=== PATIENT | male | born 1990 | race Caucasian/White ===

== ENCOUNTER 2025-03-28 16:45 | Emergency (ER) | payer BC, SELFPAY ==
--- OUTSIDE RECORDS SUMMARY | 2025-03-28 09:45 | XMS_ITS | Encounter Summary ---
Author Organization [facility] Address [address], [address] [place] [address] Care Team Providers Care Roofing Tile Sorter Name Role Phone Angelina Mitchell APRN - [place] Primary Care Provider Reason for Visit * Reason Comments Abdominal Pain Abdominal pain start ed this morning upper and lower abdomen 03/28, multiple black stools, nausea Encounter Details Date Type Department Care Team (Late st Contact Info) Description 03/28/2025 9:45 AM EDT - 03/28/2025 2:32 PM EDT Emergency [facility] Emergency Department [address] [place] [address] Pennie Ma MD [address] [place] [address] Acute gastritis, presence of bleeding unspecified, unspecified gastritis type (Primary Dx) Discharge Disposition: Home or Self Care Social History Tobacco Use Types Packs/Day Years Used Date Smoking Tobacco: Former Cigarettes Q uit: 06/2023 Smokeless Tobacco: Current Chew Tobacco Cessation:Ready to Q uit: Not Asked; Counseling Given: Not Answered Alcohol Use Standard Drinks/Week Comments Yes 0 (1 standard drink = 0.6 oz pur e alcohol) AUDIT-C Answer Date Recorded Q1: How often do you have a drink containing alc ohol? Monthly or less 01/28/2024 Q2: How many drinks containi ng alcohol do you have on a typical day when you are drinking? 3 or 4 01/28/2024 Q3: How often do you have si x or more drinks on one occasion? Never 01/28/2024 AUDIT-C Answer Date Recorded Q1: How often do you have a drink containing alc ohol? Monthly or less 03/28/2025 Q2: How many drinks containi ng alcohol do you have on a typical day when you are drinking? 3 or 4 03/28/2025 Q3: How often do you have si x or more drinks on one occasion? Never 03/28/2025 Interpersonal Safety Domain Source: IP Abuse Scr eening Answer Date Recorded Physical abuse Denies 03/28/2025 Verbal abuse Denies 03/28/2025 Emotional abuse Denies 03/28/2025 Financial abuse Denies 03/28/2025 Sexual abuse Denies 03/28/2025 Sex and Gender Information Value Date Recorded Sex Assigned at Not on file Legal Sex Male 5:10 PM EST Gender Identity Not on file Sexual Orientation Not on file documented as of this encounter Last Filed Vital Signs Vital Sign Reading Time Taken Comments Blood Pressure 131/65 03/28/2025 2:29 PM EDT Pulse 75 03/28/2025 9:47 AM EDT Temperature 36.7 C (98.1 F) 03/28/2025 9:47 AM EDT Respiratory Rate 20 03/28/2025 9:47 AM EDT Oxygen Saturation 96% 03/28/2025 2:29 PM EDT Inhaled Oxygen Concentration - - Weight 97.5 kg (215 lb) 03/28/2025 9:47 AM EDT Height 165.1 cm (5' 5 ) 03/28/2025 9:47 AM EDT Body Mass Index 35.78 03/28/2025 9:47 AM EDT documented in this encounter Functional Status documented as of this encounter Discharge Instructions * Discharge Instructions* Pennie Ma MD - 03/28/2025 2:04 PM EDT Dietary restrictions include avoiding spicy foods acidic foods which to include tomato paste saucessauces etc. No alcohol. Avoid carbonated and caffeinated beverages. Take Carafate 4 times a day on an empty stomach. Use Zofran every 8 hours as needed for nausea or vomiting. Make sure that you drink plenty of water. Follow-up with your primary care provider within 1 week for recheck. Please return immediately should you develop any worsening symptoms or any other acute concern documented in this encounter Medications at Time of Discharge ibuprofen (ADVIL;MOTRIN) 200 MG tablet Take 2 tablets by mouth every 6 hours as needed for Pain ondansetron (ZOFRAN-ODT) 4 MG disintegrating tablet Take 1 tablet by mouth 3 times daily as needed for Nausea or Vomiting 20 tablet 03/28/2025 sucralfate (CARAFATE) 1 GM/10ML suspension Take 4 times a day on an empty stomach-1 g when you wake up, will 1 g half an hour before lunch and a half an hour before dinner and 1 g at bedtime 1200 mL 3 03/28/2025 vitamin D (ERGOCALCIFEROL) 1.25 MG (75289 UT) CAPS capsule Take 1 capsule by mouth once a week 12/29/2023 albuterol sulfate HFA (PROAIR HFA) 108 (90 Base) MCG/ACT inhaler Inhale 2 puffs into the lungs every 6 hours as needed for Wheezing 18 g 06/20/2021 busPIRone (BUSPAR) 5 MG tablet Take 1 tablet by mouth 3 times daily 12/23/2023 dicyclomine (BENTYL) 10 MG capsule Take 1 capsule by mouth 4 times daily (before meals and nightly) for 10 days 40 capsule 12/19/2023 famotidine (PEPCID) 20 MG tablet Take 1 tablet by mouth 2 times daily 60 tablet 12/19/2023 ondansetron (ZOFRAN-ODT) 4 MG disintegrating tablet Take 1 tablet by mouth 3 times daily as needed for Nausea or Vomiting 21 tablet 12/19/2023 ibuprofen (ADVIL;MOTRIN) 800 MG tablet Take 1 tablet by mouth every 8 hours as needed for Pain 30 tablet 03/15/2020 ondansetron (ZOFRAN ODT) 4 MG disintegrating tablet Take 1 tablet by mouth every 8 hours as needed for Nausea 20 tablet 03/15/2020 acetaminophen (TYLENOL) 325 MG tablet Take 2 tablets by mouth every 6 hours as needed for Pain documented as of this encounter Plan of Treatment Not on file documented as of this encounter Procedures Procedure Name Priority Date/Time Associated Diagnosis Comments URINALYSIS WITH MICROSCOPIC STAT 03/28/2025 1:40 PM EDT XR ABDOMEN (KUB) (SINGLE AP VIEW) STAT 03/28/2025 12:31 PM EDT CBC WITH AUTO DIFFERENTIAL STAT 03/28/2025 10:15 AM EDT LIPASE STAT 03/28/2025 10:15 AM EDT LACTIC ACID STAT 03/28/2025 10:15 AM EDT COMPREHENSIVE METABOLIC PANEL STAT 03/28/2025 10:15 AM EDT documented in this encounter Results * (ABNORMAL) Urinalysis with Microscopic (03/28/2025 1:40 PM EDT) Color, UA Yellow Yellow 03/28/2025 1:40 PM EDT [facility] Turbidity UA Clear Clear 03/28/2025 1:40 PM EDT [facility] Glucose, Ur NEGATIVE NEGATIVE mg/dL 03/28/2025 1:40 PM EDT [facility] Bilirubin, Urine NEGATIVE NEGATIVE 03/28/2025 1:40 PM EDT [facility] Ketones, Urine NEGATIVE NEGATIVE mg/dL 03/28/2025 1:40 PM EDT [facility] Specific [place], UA 1.020 1.010 - 1.020 03/28/2025 1:40 PM EDT [facility] Urine Hgb NEGATIVE NEGATIVE 03/28/2025 1:40 PM EDT [facility] pH, Urine 6.0 5.0 - 9.0 03/28/2025 1:40 PM EDT [facility] Protein, UA NEGATIVE NEGATIVE mg/dL 03/28/2025 1:40 PM EDT [facility] Urobilinogen, Urine Normal 0.0 - 1.0 EU/dL 03/28/2025 1:40 PM EDT [facility] Nitrite, Urine NEGATIVE NEGATIVE 03/28/2025 1:40 PM EDT [facility] Leukocyte Esterase, Urine NEGATIVE NEGATIVE 03/28/2025 1:40 PM EDT [facility] WBC, UA 0 TO 2 0 - 5 /HPF 03/28/2025 1:40 PM EDT [facility] RBC, UA 0 TO 2 0 - 2 /HPF 03/28/2025 1:40 PM EDT [facility] Epithelial Cells, UA 0 TO 2 0 - 5 /HPF 03/28/2025 1:40 PM EDT [facility] Bacteria, UA 1+(A) None 03/28/2025 1:40 PM EDT [facility] Mucus, UA 3+(A) None 03/28/2025 1:40 PM EDT [facility] URINE SPECIMEN / Unknown 03/28/2025 1:40 PM EDT 03/28/2025 1:56 PM EDT us Pennie Ma MD URINE ORDERABLES Final Result [facility] [address] [phone] * XR ABDOMEN (KUB) (SINGLE AP VIEW) (03/28/2025 12:31 PM EDT) Anatomical Region Laterality Modality Abdomen Computed Radiogr aphy 03/28/2025 1:30 PM EDT Impressions 03/28/2025 1:30 PM EDT Nonspecific but nonobstructive bowel gas pattern. Narrative 03/28/2025 1:30 PM EDT EXAMINATION: ONE SUPINE XRAY VIEW(S) OF THE ABDOMEN 03/28/2025 12:06 pm COMPARISON: None. HISTORY: ORDERING SYSTEM PROVIDED HISTORY: epigastric pain TECHNOLOGIST PROVIDED HISTORY: epigastric pain FINDINGS: Nonspecific but nonobstructive bowel gas pattern. No definite evidence for intraperitoneal free air. No urinary tract calcifications are noted. No acute osseous abnormality. Procedure Note Og Botello MD - 03/28/2025 EXAMINATION: ONE SUPINE XRAY VIEW(S) OF THE ABDOMEN 03/28/2025 12:06 pm COMPARISON: None. HISTORY: ORDERING SYSTEM PROVIDED HISTORY: epigastric pain TECHNOLOGIST PROVIDED HISTORY: epigastric pain FINDINGS: Nonspecific but nonobstructive bowel gas pattern. No definite evidencefor intraperitoneal free air. No urinary tract calcifications are noted.No acute osseous abnormality. IMPRESSION: Nonspecific but nonobstructive bowel gas pattern. us Pennie Ma MD IMG DIAGNOSTIC IMAGING ORDERABLE S Final Result * (ABNORMAL) Lipase (03/28/2025 10:15 AM EDT) Lipase 64(H) 13 - 60 U/L 03/28/2025 10:15 AM EDT [facility] Blood BLOOD SPECIMEN / Unknown 03/28/2025 10:15 AM EDT 03/28/2025 10:25 AM EDT us Pennie Ma MD CHEMISTRY ORDERABLES Final Resul t Performing Organization Address [facility]/ZIP Co de Phone Number [facility] [address] [place] [address] * Lactic Acid (03/28/2025 10:15 AM EDT) Lactic Acid 1.1 0.5 - 2.2 mmol/L 03/28/2025 10:15 AM EDT [facility] 03/28/2025 10:1 5 AM EDT 03/28/2025 10:25 AM EDT Pennie Ma MD CHEMISTRY ORDERABLES Final Resul t Performing Organization Address City/[facility]/ZIP Co de Phone Number [facility] [address] [phone] * (ABNORMAL) Comprehensive Metabolic Panel (03/28/2025 10:15 AM ED) Sodium 139 136 - 145 mmol/L 03/28/2025 10:15 AM [facility] Potassium 4.2 3.7 - 5.3 mmol/L 03/28/2025 10:15 AM [facility] Chloride 103 98 - 107 mmol/L 03/28/2025 10:15 AM [facility] CO2 24 20 - 31 mmol/L 03/28/2025 10:15 AM [facility] Anion Gap 12 9 - 16 mmol/L 03/28/2025 10:15 AM [facility] Glucose 101(H) 74 - 99 mg/dL 03/28/2025 10:15 AM [facility] BUN 12 6 - 20 mg/dL 03/28/2025 10:15 AM [facility] Creatinine 0.7 0.70 - 1.20 mg/dL 03/28/2025 10:15 AM [facility] Est, Glom Filt Rate >90 >60 mL/min/1.7 3m2 03/28/2025 10:15 AM [facility] Comment: These results are not intended for use in patients <18 years of age. eGFR results are calculated without a race factor using the 2020 CKD-EPI equation. Careful clinical correlation is recommended, particularly when comparing to results calculated using previous equations. The CKD-EPI equation is less accurate in patients with extremes of muscle mass, extra-renal metabolism of creatine, excessive creatine ingestion, or following therapy that affects renal tubular secretion. BUN/Creatinine Ratio 17 9 - 20 03/28/2025 10:15 AM [facility] Calcium 8.9 8.6 - 10.4 mg/dL 03/28/2025 10:15 AM [facility] Total Protein 7.0 6.6 - 8.7 g/dL 03/28/2025 10:15 AM [facility] Albumin 4.6 3.5 - 5.2 g/dL 03/28/2025 10:15 AM [facility] Albumin/Globulin Ratio 1.9 1.0 - 2.5 03/28/2025 10:15 AM [facility] Total Bilirubin 0.5 0.00 - 1.20 mg/dL 03/28/2025 10:15 AM [facility] Alkaline Phosphatase 80 40 - 129 U/L 03/28/2025 10:15 AM [facility] ALT 23 10 - 50 U/L 03/28/2025 10:15 AM [facility] AST 18 10 - 50 U/L 03/28/2025 10:15 AM [facility] Blood BLOOD SPECIMEN / Unknown 03/28/2025 10:15 AM EDT 03/28/2025 10:25 AM EDT us Pennie Ma MD CHEMISTRY ORDERABLES Final Resul t [facility] [address] [phone] * (ABNORMAL) CBC with Auto Differential (03/28/2025 10:15 AM EDT) WBC 9.0 3.5 - 11.3 k/uL 03/28/2025 10:15 AM [facility] RBC 5.69 4.21 - 5.77 m/uL 03/28/2025 10:15 AM [facility] Hemoglobin 15.9 13.0 - 17.0 g/dL 03/28/2025 10:15 AM [facility] Hematocrit 46.9 40.7 - 50.3 % 03/28/2025 10:15 AM [facility] MCV 82.4(L) 82.6 - 102.9 fL 03/28/2025 10:15 AM [facility] MCH 27.9 25.2 - 33.5 pg 03/28/2025 10:15 AM [facility] MCHC 33.9 28.4 - 34.8 g/dL 03/28/2025 10:15 AM [facility] RDW 13.4 11.8 - 14.4 % 03/28/2025 10:15 AM [facility] Platelets 331 138 - 453 k/uL 03/28/2025 10:15 AM [facility] MPV 8.9 8.1 - 13.5 fL 03/28/2025 10:15 AM [facility] NRBC Automated 0.0 0.0 per 100 WBC 03/28/2025 10:15 AM [facility] Neutrophils % 72(H) 36 - 65 % 03/28/2025 10:15 AM [facility] Lymphocytes % 15(L) 24 - 43 % 03/28/2025 10:15 AM [facility] Monocytes % 6 3 - 12 % 03/28/2025 10:15 AM [facility] Eosinophils % 7(H) 1 - 4 % 03/28/2025 10:15 AM [facility] Basophils % 0 0 - 2 % 03/28/2025 10:15 AM [facility] Immature Granulocytes % 0 0 % 03/28/2025 10:15 AM [facility] Neutrophils Absolute 6.53 1.50 - 8.10 k/uL 03/28/2025 10:15 AM [facility] Lymphocytes Absolute 1.31 1.10 - 3.70 k/uL 03/28/2025 10:15 AM [facility] Monocytes Absolute 0.51 0.10 - 1.20 k/uL 03/28/2025 10:15 AM [facility] Eosinophils Absolute 0.59(H) 0.00 - 0.44 k/uL 03/28/2025 10:15 AM [facility] Basophils Absolute 0.03 0.00 - 0.20 k/uL 03/28/2025 10:15 AM EDT [facility] Immature Granulocytes Absolute 0.03 0.00 - 0.30 k/uL 03/28/2025 10:15 AM EDT [facility] BLOOD SPECIMEN / Unknown 03/28/2025 10:15 AM EDT 03/28/2025 10:25 AM EDT us Pennie Ma MD HEMATOLOGY ORDERABLES Final Resu lt [facility] [address] [phone] documented in this encounter Visit Diagnoses Diagnosis Acute gastritis, presence of bleeding unspecified, unspecified gastritis type- Primary documented in this encounter Administered Medications Inactive Administered Medications - up to 3 most recent administrations Medication Order MAR Action Action Date Dose Rate Site aluminum & magnesium hydroxide-simethicone (MAALOX PLUS) 30 mL, lidocaine viscous hcl (XYLOCAINE) 5 mL (GI COCKTAIL) Oral, ONCE, On Chasity 03/28/25 at 1245, For 1 dose, Take 5 mL from lidocaine viscous 2% cup and mix with 30 mL of maalox and then administer. Given 03/28/2025 12:39 PM EDT famotidine (PEPCID) 20 MG/2ML 20 mg in sodium chloride (PF) 0.9 % 10 mL injection 20 mg, IntraVENous, ONCE, 1 dose, On Chasity 03/28/25 at 1045, IV Push over minimum of 2 minutes - Dilute with 10 mL NS Given 03/28/2025 10:51 AM EDT 20 mg HYDROcodone-acetaminophen (NORCO) 5-325 MG per tablet 1 tablet 1 tablet, Oral, ONCE, 1 dose, On Chasity 03/28/25 at 1415, Maximum dose of acetaminophen is 4000 mg from all sources in 24 hours. Given 03/28/2025 2:27 PM EDT 1 tablet ondansetron (ZOFRAN) injection 4 mg 4 mg, IntraVENous, ONCE, 1 dose, On Chasity 03/28/25 at 1045 Given 03/28/2025 10:51 AM EDT 4 mg sodium chloride 0.9 % bolus 1,000 mL 1,000 mL (10.3 mL/kg), IntraVENous, at 983.6 mL/hr, Administer over 61 Minutes, ONCE, On Chasity 03/28/25 at 1045, For 1 dose New Bag 03/28/2025 10:51 AM EDT 1,000 mLs 983.6 mL/hr documented in this encounter Active and Recently Administered Medications Times are shown in EDT. Scheduled Medication Order 03/26/2025 03/27/2025 03/28/2025 aluminum & magnesium hydroxide-simethicone (MAALOX PLUS) 30 mL, lidocaine viscous hcl (XYLOCAINE) 5 mL (GI COCKTAIL) (COMPLETED) Oral, ONCE, On Chasity 03/28/25 at 1245, For 1 dose, Take 5 mL from lidocaine viscous 2% cup and mix with 30 mL of maalox and then administer. 1239 (Given - Provid er: Katey Garcia RN) famotidine (PEPCID) 20 MG/2ML 20 mg in sodium chloride (PF) 0.9 % 10 mL injection (COMPLETED) 20 mg, IntraVENous, ONCE, 1 dose, On Chasity 03/28/25 at 1045, IV Push over minimum of 2 minutes - Dilute with 10 mL NS 1051 (Given - Provid er: Sarwat Liang RN) HYDROcodone-acetaminophen (NORCO) 5-325 MG per tablet 1 tablet (COMPLETED) 1 tablet, Oral, ONCE, 1 dose, On Chasity 03/28/25 at 1415, Maximum dose of acetaminophen is 4000 mg from all sources in 24 hours. 1427 (Given - Provid er: Nancy Arzola RN - Comment: Per dr Ma, pt given norco to take at home) ondansetron (ZOFRAN) injection 4 mg (COMPLETED) 4 mg, IntraVENous, ONCE, 1 dose, On Chasity 03/28/25 at 1045 1051 (Given - Provid er: Sarwat Liang RN) sodium chloride 0.9 % bolus 1,000 mL (COMPLETED) 1,000 mL (10.3 mL/kg), IntraVENous, at 983.6 mL/hr, Administer over 61 Minutes, ONCE, On Chasity 03/28/25 at 1045, For 1 dose 1051 (New Bag - Prov ider: Sarwat Liang RN)1155 (Stopped - Provider: Delfina R Connie, RN) documented in this encounter Additional Health Concerns Infection Onset Date Last Indicated Resolved Time C-diff Rule Out 03/28/2025 03/28/2025 03/28/2025 2 :49 PM EDT documented as of this encounter Care Teams Roofing Tile Sorter Relationship Specialty Start Date End Date Angelina Mitchell APRN - GRADUATE NURSE [address] [place] [id number] PCP - General 10/27/21 documented as of this encounter
[2025-03-28 16:49] VITALS: BP 117/81; PULSE 77; TEMP 36.9; O2SAT 95; BMI 35.8
--- NOTE | 2025-03-28 17:02 | ED_ITS ---
HPI - Abdominal Pain General Chief Complaint: Abdominal Pain Stated Complaint: STOMACH PROBLEMS AND BLACK STOOL Time Seen by Provider: 03/28/25 16:55 Source: patient Mode of arrival: walk-in Limitations: no limitations History of Present Illness HPI narrative: 34 year old male presents to the ED for upper abd pain, nausea, dark stools. Onset was yesterday. Denies fever, chills, injury, urinary symptoms. Denies al cohol use. He takes Motrin occasionally for headaches. Denies taking Pepto- bismol within the past few days. He was evaluated at [facility] this morning for the same. He had CBC, CMP, lipase, urinalysis, and stool studies ordered. He also had an abdominal x-ray completed. His diagnosis was gastritis. His Hgb was 14.9. He states he is here due to the continued discomfort. He received IV Zofran and Pepcid at the visit. He was given prescriptions for Zofran and Carafate. He takes Pepcid. Related Data Allergies Allergy/AdvReac Type Severity Reaction Status Date / Time mushroom Allergy Severe Anaphylaxis Verified 03/28/25 16:53 shellfish derived Allergy Severe Anaphylaxis Verified 03/28/25 16:53 Review of Systems ROS Constitutional Denies: fever, chills or fatigue Ears, nose, mouth, and throat Denies: throat pain Cardiovascular Denies: chest pain or lightheadedness Respiratory Denies: shortness of breath Gastrointestinal Reports: abdominal pain and nausea; Denies: vomiting, diarrhea or constipation Musculoskeletal Denies: back pain Neurological Denies: headache or dizziness PFSH PFSH Social History Little interest or pleasure in doing things: not at all Feeling down, depressed, or hopeless: not at all Exam Constitutional Vital Signs, click to edit/add: Last Vital Signs Temp 98.4 F 03/28/25 16:49 Pulse 77 03/28/25 16:49 Resp 20 03/28/25 16:49 BP 117/81 03/28/25 16:49 Pulse Ox 95 03/28/25 16:49 O2 Del Method Room Air 03/28/25 16:49 Common normals: no apparent distress and oriented x3 General appearance: cooperative HENMT Common normals: moist oral mucous membranes Eye Common normals: conjunctivae normal and no scleral icterus Neck & C-Spine Common normals: supple Chest Chest: symmetrical chest wall rise Respiratory Common normals: normal respiratory effort Effort & inspection: able to speak in complete sentences and symmetric chest movement Cardio Common normals: regular rate and regular rhythm GI Common normals: soft to palpation Palpation: tender Details: epigastric and LLQ Neuro Common normals: oriented x3 and moves all extremities Sensorium/orientation: awake and alert Speech: speech normal Course Vital Signs Vital signs: Vital Signs Temperature 98.4 F 03/28/25 16:49 Pulse Rate 77 03/28/25 16:49 Respiratory Rate 20 03/28/25 16:49 Blood Pressure 117/81 03/28/25 16:49 Pulse Oximetry 95 03/28/25 16:49 Oxygen Delivery Method Room Air 03/28/25 16:49 Temperature 98.4 F 03/28/25 16:49 Pulse Rate 77 03/28/25 16:49 Respiratory Rate 20 03/28/25 16:49 Blood Pressure 117/81 03/28/25 16:49 Pulse Oximetry 95 03/28/25 16:49 Oxygen Delivery Method Room Air 03/28/25 16:49 MDM - Abdominal Pain MDM Narrative Medical decision making narrative: The patient's records from [facility] from this morning were obtained and reviewed. Hgb here was 15.2; it was 14.9 at the visit this morning. CT scan was negative for acute findings. Findings were discussed with the patient. He has Zofran, Carafate, and Pepcid. He was encouraged to take the medication as directed. He was encouraged to follow the dietary guidelines he was given this morning. Follow up with pcp for a recheck, further evaluation and treatment. Medical Records Attestation: I reviewed the patient's medical records. Lab Data Attestation: I reviewed the patient's lab results. Labs: Lab Results 03/28/25 Range/Units 17:31 WBC 10.2 (4.0-11.0) 10^3/uL RBC 5.35 (4.70-6.10) 10^6/uL Hgb 15.2 (14.0-18.0) g/dL Hct 44.4 (42.0-54.0) % MCV 83.0 (80.0-94.0) fL MCH 28.4 (25.9-34.0) pg MCHC 34.2 (29.9-35.2) g/dL RDW 13.4 (11.0-15.0) % Plt Count 310 (150-450) 10^3/uL MPV 8.8 L (9.5-13.5) fL Neut % (Auto) 70.5 (43.0-75.0) % Lymph % (Auto) 18.2 L (20.5-60.0) % [place]ountain % (Auto) 5.3 (1.7-12.0) % Eos % (Auto) 5.4 (0.9-7.0) % Baso % (Auto) 0.3 (0.2-2.0) % Neut # (Auto) 7.2 H (1.4-6.5) 10^3/uL Lymph # (Auto) 1.9 (1.2-3.8) 10^3/uL [place]ountain # (Auto) 0.5 (0.3-0.8) 10^3/uL Eos # (Auto) 0.6 (0.0-0.7) 10^3/uL Baso # (Auto) 0.0 (0.0-0.1) 10^3/uL Abs Immat Gran (auto) 0.03 (0.00-0.03) 10^3/uL Imm/Tot Granulo (auto) 0.3 (0.0-0.5) % Imaging Data CT scan - abdomen: Attestation: I have reviewed the pertinent imaging results. Radiologist's impression: ITS Impressions Abdomen/Pelvis CT 03/28/25 17:23 IMPRESSION: No acute findings. Impression dictated by: Jared Nava M.D. 03/28/2025 6:08 PM Dictation Location: [place] [address] Electronically authenticated by: [id number] Y Date: 03/28/2025 18:08 Discharge Plan Discharge Chief Complaint: Abdominal Pain Clinical Impression: Gastritis, Abdominal pain Patient Disposition: Home, Self-Care Time of Disposition Decision: 18:18 Condition: Good Mode of Transportation: Private Vehicle Print Language: Yi Instructions: Gastritis (ED), Abdominal Pain (ED) Additional Instructions: Follow up with your primary care provider for a recheck, further evaluation and treatment. Take the Pepcid, Zofran, and Carafate as directed. Return to the ER for worsening symptoms. Referrals: DERREK TOMAS CNP [Primary Care Provider] - 1 week
--- OUTSIDE RECORDS SUMMARY | 2025-03-28 17:20 | XMS_ITS | Clinical Summary ---
Author Organization [facility] Address [address] [place] [address] Care Team Providers Care Mat Machine Tender Name Role Phone No, Physician Primary Care Provider Unavailabl e Allergies No known active allergies Medications No known medications Social History Tobacco Use Types Packs/Day Years Used Date Smoking Tobacco: Every Day Cigarettes Smokeless Tobacco: Never Alcohol Use Standard Drinks/Week Comments Yes 0 (1 standard drink = 0.6 oz pur e alcohol) rarely Sex and Gender Information Value Date Recorded Sex Assigned at Not on file Legal Sex Male 9:45 AM EDT Gender Identity Not on file Sexual Orientation Not on file Last Filed Vital Signs Vital Sign Reading Time Taken Comments Blood Pressure 114/72 06/04/2018 9:46 AM EDT Pulse 89 06/04/2018 9:46 AM EDT Temperature 36.3 C (97.4 F) 06/04/2018 9:46 AM EDT Respiratory Rate 16 06/04/2018 9:46 AM EDT Oxygen Saturation 95% 06/04/2018 9:46 AM EDT Inhaled Oxygen Concentration - - Weight 86.2 kg (190 lb) 06/04/2018 9:46 AM EDT Height 165.1 cm (5' 5 ) 06/04/2018 9:46 AM EDT Body Mass Index 31.62 06/04/2018 9:46 AM EDT Plan of Treatment Health Maintenance Due Date Last Done Comments Tetanus: Every 10yrs 1992 Wellness Visit 1995 Depression Screening/Follow- Up (PHQ-2/9) 2004 HIV Screening 2007 Hepatitis C Screening 2010 COVID-19 Vaccine (2023-2 5 season) 2024 Influenza Vaccine (#1) 2025 Pneumococcal Vaccine: Ped or At-Risk Aged Out No longer eligible b ased on patient's age to complete this topic Insurance [facility] [employer]* Care Teams Mat Machine Tender Relationship Specialty Start Date End Date No, Physician [facility] PCP - General 06/04/18
--- OUTSIDE RECORDS SUMMARY | 2025-03-28 17:20 | XMS_ITS | Clinical Summary ---
Author Organization [facility] Address [address], [address] [place] [address] Care Team Providers Care Cold Working Inspector Name Role Phone Angelina Mitchell APRN - [place] Primary Care Provider Allergies Active Allergy Reactions Criticality Noted Date Comments Other 09/14/2021 mushrooms Shellfish Allergy 09/14/2021 Medications acetaminophen (TYLENOL) 325 MG tablet Take 2 tablets by mouth every 6 hours as needed for Pain Active ibuprofen (ADVIL;MOTRIN) 800 MG tablet Take 1 tablet by mouth every 8 hours as needed for Pain 30 tablet 03/15/20 20 Active Additional Information Patient not taking.Reported on 03/28/2025 ondansetron (ZOFRAN ODT) 4 MG disintegrating tablet Take 1 tablet by mouth every 8 hours as needed for Nausea 20 tablet 03/15/20 20 Active Additional Information Patient not taking.Reported on 12/19/2023 albuterol sulfate HFA (PROAIR HFA) 108 (90 Base) MCG/ACT inhaler Inhale 2 puffs into the lungs every 6 hours as needed for Wheezing 18 g 06/20/20 21 Active dicyclomine (BENTYL) 10 MG capsule Take 1 capsule by mouth 4 times daily (before meals and nightly) for 10 days 40 capsule 12/19/19 24 Active famotidine (PEPCID) 20 MG tablet Take 1 tablet by mouth 2 times daily 60 tablet 12/19/19 24 Active Additional Information Patient not taking.Reported on 01/28/2024 ondansetron (ZOFRAN-ODT) 4 MG disintegrating tablet Take 1 tablet by mouth 3 times daily as needed for Nausea or Vomiting 21 tablet 12/19/19 24 Active Additional Information Patient not taking.Reported on 01/28/2024 busPIRone (BUSPAR) 5 MG tablet Take 1 tablet by mouth 3 times daily 12/23/19 24 Active vitamin D (ERGOCALCIFEROL) 1.25 MG (10844 UT) CAPS capsule Take 1 capsule by mouth once a week 12/29/19 24 Active ibuprofen (ADVIL;MOTRIN) 200 MG tablet Take 2 tablets by mouth every 6 hours as needed for Pain Active ondansetron (ZOFRAN-ODT) 4 MG disintegrating tablet Take 1 tablet by mouth 3 times daily as needed for Nausea or Vomiting 20 tablet 03/28/20 25 Active sucralfate (CARAFATE) 1 GM/10ML suspension Take 4 times a day on an empty stomach-1 g when you wake up, will 1 g half an hour before lunch and a half an hour before dinner and 1 g at bedtime 1200 mL 3 03/28/20 25 Active Active Problems No known active problems Encounters Date Type Department Care Team Description 03/28/2025 9:45 AM EDT - 03/28/2025 2:32 PM EDT Emergency [facility] Emergency Department [address] [place], [place] [id number] Pennie Ma MD Acute gastritis, presence of bleeding unspecified, unspecified gastritis type (Primary Dx) Discharge Disposition: Home or Self Care 03/28/2025 Travel from Last 3 Months Family History Medical History Relation Name Comments No Known Problems Brother No Known Problems Father Diabetes Maternal Grandfather No Known Problems Mother No Known Problems Sister Relation Name Status Comments Brother Father Maternal Grandfather Mother Sister Social History Tobacco Use Types Packs/Day Years [...] Mass Index 35.78 03/28/2025 9:47 AM EDT Plan of Treatment Health Maintenance Due Date Last Done Comments Depression Screen 2004 Varicella vaccine (1 of 2 - 13+ 2-dose series) 2005 HIV screen 2007 Hepatitis C screen 2010 DTaP/Tdap/Td vaccine (1 - Tdap) 2011 Hepatitis B vaccine (1 of 3 - 19+ 3-dose series) 2011 COVID-19 Vaccine (2023-2 5 season) 2024 Flu vaccine (#1) 03/15/2025 HPV vaccine (No Doses Required) Completed Hepatitis A vaccine Aged Out No longe r eligible based on patient's age to complete this topic Hib vaccine Aged Out No longer eligi ble based on patient's age to complete this topic Meningococcal (ACWY) vaccine Aged Out No longer eligible based on patient's age to complete this topic Meningococcal B vaccine Aged Out No l onger eligible based on patient's age to complete this topic Pneumococcal 0-49 years Vaccine Aged Out No longer eligible based on patient's age to complete this topic Polio vaccine Aged Out No longer elig ible based on patient's age to complete this topic Procedures Procedure Name Priority Date/Time Associated Diagnosis Comments URINALYSIS WITH MICROSCOPIC STAT 03/28/2025 1:40 PM EDT XR ABDOMEN (KUB) (SINGLE AP VIEW) STAT 03/28/2025 12:31 PM EDT LIPASE STAT 03/28/2025 10:15 AM EDT LACTIC ACID STAT 03/28/2025 10:15 AM EDT COMPREHENSIVE METABOLIC PANEL STAT 03/28/2025 10:15 AM EDT CBC WITH AUTO DIFFERENTIAL STAT 03/28/2025 10:15 AM EDT from Last 3 Months Results * (ABNORMAL) Urinalysis with Microscopic (03/28/2025 1:40 PM EDT) Color, UA Yellow Yellow 03/28/2025 1:40 PM EDT [facility] Turbidity UA Clear Clear 03/28/2025 1:40 PM EDT [facility] Glucose, Ur NEGATIVE NEGATIVE mg/dL 03/28/2025 1:40 PM EDT [facility] Bilirubin, Urine NEGATIVE NEGATIVE 03/28/2025 1:40 PM EDT [facility] Ketones, Urine NEGATIVE NEGATIVE mg/dL 03/28/2025 1:40 PM EDT [facility] Specific [place], UA 1.020 1.010 - 1.020 03/28/2025 1:40 PM EDT [facility] Urine Hgb NEGATIVE NEGATIVE 03/28/2025 1:40 PM EDT [facility] pH, Urine 6.0 5.0 - 9.0 03/28/2025 1:40 PM EDT [facility] Protein, UA NEGATIVE NEGATIVE mg/dL 03/28/2025 1:40 PM EDT [facility] Urobilinogen, Urine Normal 0.0 - 1.0 EU/dL 03/28/2025 1:40 PM EDT [facility] Nitrite, Urine NEGATIVE NEGATIVE 03/28/2025 1:40 PM EDT [facility] Leukocyte Esterase, Urine NEGATIVE NEGATIVE 03/28/2025 1:40 PM EDT [facility] WBC, UA 0 TO 2 0 - 5 /HPF 03/28/2025 1:40 PM EDT [facility] RBC, UA 0 TO 2 0 - 2 /HPF 03/28/2025 1:40 PM EDT [facility] Epithelial Cells, UA 0 TO 2 0 - 5 /HPF 03/28/2025 1:40 PM EDT [facility] Bacteria, UA 1+(A) None 03/28/2025 1:40 PM EDT [facility] Mucus, UA 3+(A) None 03/28/2025 1:40 PM EDT [facility] URINE SPECIMEN / Unknown 03/28/2025 1:40 PM EDT 03/28/2025 1:56 PM EDT us Pennie Ma MD URINE ORDERABLES Final Result [facility] [address] [phone] * XR ABDOMEN (KUB) (SINGLE AP VIEW) [...] IMPRESSION: Nonspecific but nonobstructive bowel gas pattern. Pennie Ma MD IMG DIAGNOSTIC IMAGING ORDERABLE S Final Result * (ABNORMAL) CBC with Auto Differential (03/28/2025 10:15 AM EDT) WBC 9.0 3.5 - 11.3 k/uL 03/28[facility]2025 10:[address] [facility] RBC 5.69 4.21 - 5.77 m/uL 03/28/2025 10:15 AM [facility] Hemoglobin 15.9 13.0 - 17.0 g/dL 03/28/2025 10:15 AM [facility] Hematocrit 46.9 40.7 - 50.3 % 03/28/2025 10:15 AM [facility] MCV 82.4(L) 82.6 - 102.9 fL 03/28/2025 10:15 AM T [facility] MCH 27.9 25.2 - 33.5 pg 03/28/2025 10:15 AM [facility] MCHC 33.9 28.4 - 34.8 g/dL 03/28/2025 10:15 AM [facility] RDW 13.4 11.8 - 14.4 % 03/28/2025 10:15 AM [facility] Platelets 331 138 - 453 k/uL 03/28/2025 10:15 AM [facility] MPV 8.9 8.1 - 13.5 fL 03/28/2025 10:15 AM [facility] NRBC Automated 0.0 0.0 per 100 WBC 03/28/2025 10:15 AM [facility] Neutrophils % 72(H) 36 - 65 % 03/28/2025 10:15 AM [facility] Lymphocytes % 15(L) 24 - 43 % 03/28/2025 10:15 AM [facility] Monocytes % 6 3 - 12 % 03/28/2025 10:15 AM [facility] Eosinophils % 7(H) 1 - 4 % 03/28/2025 10:15 AM [facility] Basophils % 0 0 - 2 % 03/28/2025 10:15 AM [facility] Immature Granulocytes % 0 0 % 03/28/2025 10:15 AM [facility] Neutrophils Absolute 6.53 1.50 - 8.10 k/uL 03/28/2025 10:15 AM [facility] Lymphocytes Absolute 1.31 1.10 - 3.70 k/uL 03/28/2025 10:15 AM [facility] Monocytes Absolute 0.51 0.10 - 1.20 k/uL 03/28/2025 10:15 AM [facility] Eosinophils Absolute 0.59(H) 0.00 - 0.44 k/uL 03/28/2025 10:15 AM [facility] Basophils Absolute 0.03 0.00 - 0.20 k/uL 03/28/2025 10:15 AM EDT [facility] Immature Granulocytes Absolute 0.03 0.00 - 0.30 k/uL 03/28/2025 10:15 AM EDT [facility] BLOOD SPECIMEN / Unknown 03/28/2025 10:15 AM EDT 03/28/2025 10:25 AM EDT us Pennie Ma MD HEMATOLOGY ORDERABLES Final Resu lt Performing Organization Address City/[facility]/ZIP Co de Phone Number [facility] [address] [place] [address] * (ABNORMAL) Lipase (03/28/2025 10:15 AM EDT) Lipase 64(H) 13 - 60 U/L 03/28/2025 10:15 AM EDT [facility] Blood BLOOD SPECIMEN / Unknown 03/28/2025 10:15 AM EDT 03/28/2025 10:25 AM EDT us Pennie Ma MD CHEMISTRY ORDERABLES Final Resul t Performing Organization Address [facility] Co de Phone Number [facility] [address] [place] [address] * Lactic Acid (03/28/2025 10:15 AM EDT) Lactic Acid 1.1 0.5 - 2.2 mmol/L 03/28/2025 10:15 AM EDT [facility] 03/28/2025 10:1 5 AM EDT 03/28/2025 10:25 AM EDT us Pennie Ma MD CHEMISTRY ORDERABLES Final Resul t Performing Organization Address [facility] Co de Phone Number [facility] [address] [place] [address] * (ABNORMAL) Comprehensive Metabolic Panel (03/28/2025 10:15 AM [facility]) Sodium 139 136 - 145 mmol/L 03/28/2025 10:15 AM [facility] Potassium 4.2 3.7 - 5.3 mmol/L 03/28/2025 10:15 AM [facility] Chloride 103 98 - 107 mmol/L 03/28/2025 10:15 AM [facility] CO2 24 20 - 31 mmol/L 03/28/2025 10:15 AM [facility] Anion Gap 12 9 - 16 mmol/L 03/28/2025 10:15 AM [facility] Glucose 101(H) 74 - 99 mg/dL 03/28/2025 10:15 AM [facility] BUN 12 6 - 20 mg/dL 03/28/2025 10:15 AM [facility] Creatinine 0.7 0.70 - 1.20 mg/dL 03/28/2025 10:15 AM [facility] Est, Glom Filt Rate >90 >60 mL/min/1.7 3m2 03/28/2025 10:15 AM [facility] Comment: These results are not intended [...] 17 9 - 20 03/28/2025 10:15 AM [facility] Calcium 8.9 8.6 - 10.4 mg/dL 03/28/2025 10:15 AM [facility] Total Protein 7.0 6.6 - 8.7 g/dL 03/28/2025 10:15 AM [facility] Albumin 4.6 3.5 - 5.2 g/dL 03/28/2025 10:15 AM [facility] Albumin/Globulin Ratio 1.9 1.0 - 2.5 03/28/2025 10:15 AM EDT [facility] Total Bilirubin 0.5 0.00 - 1.20 mg/dL 03/28/2025 10:15 AM EDT [facility] Alkaline Phosphatase 80 40 - 129 U/L 03/28/2025 10:15 AM EDT [facility] ALT 23 10 - 50 U/L 03/28/2025 10:15 AM EDT [facility] AST 18 10 - 50 U/L 03/28/2025 10:15 AM EDT [facility] Blood BLOOD SPECIMEN / Unknown 03/28/2025 10:15 AM EDT 03/28/2025 10:25 AM EDT us Pennie Ma MD CHEMISTRY ORDERABLES Final Resul t [facility] [address] [phone] from Last 3 Months Advance Directives Healthcare Agents on File Name Relationship Healthcare Agent Relationshi p Communication Pratibha Blanco Parent Primary Decision Maker Keron Blanco Parent Secondary Decision Maker Care Teams Cold Working Inspector Relationship Specialty Start Date End Date Angelina Mitchell, APPLICATION TECHNICIAN - TRACK WORKER [address] [place] [phone] PCP - General 10/27/21
--- OUTSIDE RECORDS SUMMARY | 2025-03-28 17:20 | XMS_ITS | Encounter Summary ---
Author Organization [facility] Address [address], [address] [place] [address] Care Team Providers Care Product Support Consultant Name Role Phone Angelina Mitchell APRN - [place] Primary Care Provider Encounter Details Date Type Department Care Team (Latest Contact Info) Description 03/28/2025 Travel Social History Tobacco Use Types Packs/Day Years Used Date Smoking Tobacco: Former Cigarettes Q uit: 06/2023 Smokeless Tobacco: Current Chew Alcohol Use Standard Drinks/Week Comments Yes 0 [...] on file documented as of this encounter Functional Status documented as of this encounter Plan of Treatment Not on file documented as of this encounter Visit Diagnoses Not on filedocumented in this encounter Additional Health Concerns Infection Onset Date Last Indicated Resolved Time C-diff Rule Out 03/28/2025 03/28/2025 03/28/2025 2 :49 PM EDT documented as of this encounter Care Teams Product Support Consultant Relationship Specialty Start Date End Date Angelina Mitchell APRN - CONSULTING SOFTWARE ENGINEER [address] [place] [phone] PCP - General 10/27/21 documented as of this encounter
--- NOTE | 2025-03-28 17:23 | CT_ITS ---
The [address] [address] Patient Name: DEE GAMBLE MRN: [id number] date: 1990 Sex: M Assigned Patient Location: ER Current Patient Location: ER Accession/Order Number: [id number] Exam Date: 03/28/2025 18:04 Report Date: 03/28/2025 18:08 At the request of: RIGOBERTO FELIX Procedure: CT abdomen pelvis wo con CT Abdomen and Pelvis withoutcontrast TECHNIQUE: Axial imaging with 2-D reconstruction. . The CT exam was performed using one or more the following dose reduction techniques: Automated exposure control, adjustment of the MA and/or Kv according to patient size, or use of the iterative reconstruction technique. COMPARISON: None History: Epigastric pain LIMITATIONS: None LOWER THORAX Unremarkable LIVER: Unremarkable GALLBLADDER: No gallbladder abnormality identified. BILE DUCTS: No dilatation SPLEEN: Unremarkable PANCREAS: Unremarkable ADRENAL GLANDS: Unremarkable KIDNEYS:Unremarkable AORTA: No abdominal aortic aneurysm identified. RETROPERITONEUM: No significant retroperitoneal abnormalities identified. MESENTERY:Unremarkable STOMACH:Unremarkable SMALL BOWEL: The small bowel loops are nondistended. APPENDIX: The appendix is normal. COLON: Unremarkable URINARY BLADDER: Urinary bladder is unremarkable. REPRODUCTIVE SYSTEM: Reproductive structures are unremarkable. PNEUMOPERITONEUM: None PERITONEAL FLUID:None BONY STRUCTURES: Unremarkable ABDOMINAL WALL: Unremarkable CT/CT abdomen pelvis wo con IMPRESSION: No acute findings. Impression dictated by: Jared Nava M.D. 03/28/2025 6:08 PM Dictation Location: [employer] Electronically authenticated by: [id number] Y Date: 03/28/2025 18:08
[2025-03-28 17:38] LABS: Hematocrit 44.4 % (42.0-54.0); Hemoglobin 15.2 g/dL (14.0-18.0); Immature Granulocytes Abs Auto 0.03 10^3/uL (0.00-0.03); Immature Granulocytes Pct Auto 0.3 % (0.0-0.5); Lymphocytes Absolute Auto 1.9 10^3/uL (1.2-3.8); Mean Corpuscular HGB Conc 34.2 g/dL (29.9-35.2); Mean Corpuscular Hemoglobin 28.4 pg (25.9-34.0); Mean Corpuscular Volume 83.0 fL (80.0-94.0); Platelet Count 310 10^3/uL (150-450); Red Blood Count 5.35 10^6/uL (4.70-6.10); White Blood Count 10.2 10^3/uL (4.0-11.0)
[2025-03-28] MEDS: PANTOPRAZOLE SODIUM 40 MG VIAL IV (17:47)
== END 2025-03-28 18:35 | disposition home or self-care (01) ==
PROVIDERS: Nurse Practitioner Family; Emergency Provider Emergency Medicine; PCP Nurse Practitioner Family
DX: K29.70 Gastritis, unspecified, without bleeding (principal); R10.84 Generalized abdominal pain; R11.0 Nausea
CPT/HCPCS: 36415; 74176; 85025; 96374; 99285